=== PATIENT | male | born 1940 | race Caucasian/White ===

== ENCOUNTER 2019-04-11 12:59 | Outpatient (RCR) | payer MEDICARE, BC ==
[2005-02-28 09:55] VITALS: BP 178/78
[~2019-04-11] VITALS: Ht 167.6 cm; Wt 53.4 kg
[~2019-04-11 12:59] MED LIST: ASPIRIN E.C. 8181 MG PO; BENICAR HCT 251 TAB PO; CELEBREX 200MG200 MG PO; HYZAAR 25 MG-101 TAB PO; LOPRESSOR 225 MG/TAB PO; LOPRESSOR PO; PLAVIX 75MG TAB75 MG PO; ROXICODONE 55 MG/TAB PO; SIMVASTATIN40 MG PO; VITAMIN D1000 IU PO; ZOCOR 40MG40 MG PO
[2019-04-11 14:11] LABS: HEMATOCRIT 38.7 % (42.0-52.0); HEMOGLOBIN 13.3 g/dl (13.5-18.0); MEAN CELL VOLUME 98 fl (80.0-100.0); MEAN CORPUSCULAR HEMOGLOBIN 34 pg (27.0-31.0); MEAN CORPUSCULAR HGB CONC 34 g/dl (33.0-37.0); MEAN PLATELET VOLUME 9.5 fl (7.4-10.4); PLATELET COUNT 191 K/mm3 (130-400); RED BLOOD COUNT 3.97 M/mm3 (4.20-5.60); REDCELL DISTRIBUTION WIDTH-CV 12.4 % (11.5-14.5)
[2019-04-11 14:20] LABS: ALBUMIN 3.1 gm/dL (3.5-5.0); BILIRUBIN,TOTAL 0.3 mg/dL (0.0-1.0); CALCIUM 8.7 mg/dL (8.4-10.2); CREATININE, serum 1.53 (0.66-1.25); POTASSIUM 3.6 mmol/L (3.4-5.0); TOTAL PROTEIN 6.3 gm/dL (6.4-8.2)
[2019-04-11 14:50] LABS: THYROID STIMULATING HORMONE 7.74 uIU/mL (0.465-4.680)
[2019-04-11 14:57] LABS: BAND 2 % (0-10); EOSINOPHIL 7 % (0-4); NEUTROPHILS 69 % (42.0-75.2); PLATELET ESTIMATE NORMAL (NORMAL)
[2019-04-11 14:58] LABS: LYMPHOCYTE 16 % (20.0-51.0)
[2019-04-11 15:11] VITALS: BP 128/62; PULSE 52; TEMP 98.4
== END 2019-04-11 14:55 | disposition home or self-care (01) ==
LOC: EUO 12:59
PROVIDERS: Internal Medicine
DX: R42 Dizziness and giddiness (principal); R06.02 Shortness of breath
CPT/HCPCS: J7030

== ENCOUNTER 2019-04-19 18:52 | Emergency (ER) | payer MEDICARE, BC ==
[2005-02-28 09:55] VITALS: BP 178/78
[~2019-04-19] VITALS: Ht 165.1 cm; Wt 52.7 kg
[2019-04-19 18:59] VITALS: TEMP 97.4
[2019-04-19 20:17] LABS: HEMATOCRIT 37.9 % (42.0-52.0); HEMOGLOBIN 12.9 g/dl (13.5-18.0); MEAN CELL VOLUME 99 fl (80.0-100.0); MEAN CORPUSCULAR HEMOGLOBIN 34 pg (27.0-31.0); MEAN CORPUSCULAR HGB CONC 34 g/dl (33.0-37.0); MEAN PLATELET VOLUME 9.3 fl (7.4-10.4); PLATELET COUNT 191 K/mm3 (130-400); RED BLOOD COUNT 3.83 M/mm3 (4.20-5.60)
[2019-04-19 20:19] LABS: ALBUMIN 3.6 gm/dL (3.5-5.0); BILIRUBIN,TOTAL 0.4 mg/dL (0.0-1.0); CALCIUM 8.7 mg/dL (8.4-10.2); CREATININE, serum 1.63 (0.66-1.25); POTASSIUM 3.5 mmol/L (3.4-5.0); TOTAL PROTEIN 7.1 gm/dL (6.4-8.2)
[2019-04-19 20:34] LABS: TROPONIN-I 0.038 ng/mL (0.000-0.035)
[2019-04-19 21:11] LABS: BAND 5 % (0-10); EOSINOPHIL 5 % (0-4); NEUTROPHILS 82 % (42.0-75.2)
[2019-04-19 21:12] LABS: LYMPHOCYTE 6 % (20.0-51.0); PLATELET ESTIMATE NORMAL (NORMAL)
[2019-04-19 23:53] LABS: COLLECTION METHOD CLEAN CATCH
[2019-04-19 23:59] LABS: PH 6 (5-8); SQUAMOUS EPITHELIAL None Seen /hpf; URINE APPEARANCE Clear; URINE BACTERIA None Seen /hpf; URINE BILIRUBIN Negative (NEGATIVE); URINE BLOOD 1+ (NEGATIVE); URINE COLOR Straw; URINE GLUCOSE 1+ (NEGATIVE); URINE KETONE Negative (NEGATIVE); URINE LEUKOCYTE ESTERASE Negative (NEGATIVE); URINE NITRATE Negative (NEGATIVE); URINE PROTEIN(semi-quant) Negative (NEGATIVE); URINE RBC 0-2 /hpf; URINE UROBILINOGEN Negative (NEGATIVE)
[2019-04-20 02:10] VITALS: BP 156/79; PULSE 97
== END 2019-04-20 02:10 | disposition short-term general hospital (02) ==
LOC: COL.ER 18:52
PROVIDERS: Emergency Medicine
DX: J44.1 Chronic obstructive pulmonary disease with (acute) exacerbation (principal); E87.2 Acidosis; R79.89 Other specified abnormal findings of blood chemistry; Z86.73 Personal history of transient ischemic attack (TIA), and cerebral infarction without residual deficits; Z85.118 Personal history of other malignant neoplasm of bronchus and lung
CPT/HCPCS: J2930; J7030; Q9967

== ENCOUNTER 2019-06-12 10:43 | Day surgery (SDC) | payer MEDICARE, BC ==
[2005-02-28 09:55] VITALS: BP 178/78
[2019-06-12] VITALS (14 sets, daily range): BP systolic 121–199; BP diastolic 68–96; PULSE 65–87; TEMP 97.4–98
[~2019-06-12] VITALS: Ht 165.1 cm; Wt 52.2 kg
[2019-06-12] MEDS ORDERED: ANORO IH (10:59)
[2019-06-12] MEDS ORDERED: PROVENTIL0.09 MG/A1 IH (11:00)
[2019-06-12] MEDS ORDERED: PULMICORT180 MCG/Ac IH (11:00)
[2019-06-12] MEDS ORDERED: CELEBREX 200MG200 MG PO (11:01)
[2019-06-12] MEDS ORDERED: PLAVIX 75MG TAB75 MG PO (11:01)
[2019-06-12] MEDS ORDERED: NICODERM C14 MG/PATC TD (11:02)
[2019-06-12 11:49] LABS: INR 0.9 (0.8-3.0); PROTHROMBIN TIME 10.9 SECONDS (9.7-12.8)
[2019-06-12 11:55] LABS: CALCIUM 9.3 mg/dL (8.4-10.2); CREATININE, serum 1.46 (0.66-1.25); POTASSIUM 4.4 mmol/L (3.4-5.0)
[2019-06-12 12:11] LABS: HEMATOCRIT 41.5 % (42.0-52.0); HEMOGLOBIN 13.9 g/dl (13.5-18.0); MEAN CELL VOLUME 101 fl (80.0-100.0); MEAN CORPUSCULAR HEMOGLOBIN 34 pg (27.0-31.0); MEAN CORPUSCULAR HGB CONC 34 g/dl (33.0-37.0); MEAN PLATELET VOLUME 9.6 fl (7.4-10.4); PLATELET COUNT 215 K/mm3 (130-400); RED BLOOD COUNT 4.12 M/mm3 (4.20-5.60); REDCELL DISTRIBUTION WIDTH-CV 13.2 % (11.5-14.5)
[2019-06-12] MEDS ORDERED: CARTIA XT120 MG PO (14:42)
== END 2019-06-12 22:18 | disposition home or self-care (01) ==
LOC: COL.CAR 10:43 → MEDICAL 17:42 → COL.CAR 22:18
PROVIDERS: Internal Medicine Cardiovascular Disease
DX: I25.10 Atherosclerotic heart disease of native coronary artery without angina pectoris (principal); R94.39 Abnormal result of other cardiovascular function study; E03.9 Hypothyroidism, unspecified; I95.1 Orthostatic hypotension; J44.9 Chronic obstructive pulmonary disease, unspecified; N18.3 Chronic kidney disease, stage 3 (moderate); I12.9 Hypertensive chronic kidney disease with stage 1 through stage 4 chronic kidney disease, or unspecified chronic kidney disease; N52.9 Male erectile dysfunction, unspecified; E78.5 Hyperlipidemia, unspecified; M19.90 Unspecified osteoarthritis, unspecified site; M85.80 Other specified disorders of bone density and structure, unspecified site; F17.210 Nicotine dependence, cigarettes, uncomplicated; Z86.73 Personal history of transient ischemic attack (TIA), and cerebral infarction without residual deficits; Z85.118 Personal history of other malignant neoplasm of bronchus and lung; Z79.82 Long term (current) use of aspirin; Z79.02 Long term (current) use of antithrombotics/antiplatelets; Z82.49 Family history of ischemic heart disease and other diseases of the circulatory system; Z80.1 Family history of malignant neoplasm of trachea, bronchus and lung
CPT/HCPCS: OP; C1769; C1894; J1644; J2250; J3010; Q9967

== ENCOUNTER 2019-12-18 11:32 | Inpatient (IN) | payer MEDICARE, BC ==
[~2019-12-18] VITALS: Ht 160 cm; Wt 50.3 kg
[~2019-12-18 11:32] MED LIST changes: +ANORO IH; +CARTIA XT120 MG PO; +NICODERM C14 MG/PATC TD; +PROVENTIL0.09 MG/A1 IH; +PULMICORT180 MCG/Ac IH
[2019-12-18 13:21] LABS: BASO % 0.5 % (0.0-2.0); EOS # 0.1 (0.0-0.7); EOS % 1.3 % (0-4.0); GRAN # 5.5 (1.4-6.5); GRAN % 71.7 % (42.2-75.2); HEMATOCRIT 40.6 % (42.0-52.0); HEMOGLOBIN 13.4 g/dl (13.5-18.0); LYMPH # 1.3 (1.2-3.4); LYMPH % 17.2 % (20.0-51.0); MEAN CELL VOLUME 98 fl (80.0-100.0); MEAN CORPUSCULAR HEMOGLOBIN 32 pg (27.0-31.0); MEAN CORPUSCULAR HGB CONC 33 g/dl (33.0-37.0); MEAN PLATELET VOLUME 9.8 fl (7.4-10.4); MONO # 0.7 (0.1-0.6); MONO % 8.9 % (1.7-9.3); PLATELET COUNT 237 K/mm3 (130-400); RED BLOOD COUNT 4.13 M/mm3 (4.20-5.60); REDCELL DISTRIBUTION WIDTH-CV 12.8 % (11.5-14.5)
[2019-12-18 13:23] LABS: PROTHROMBIN TIME 11.6 SECONDS (9.7-12.8)
[2019-12-18 13:30] LABS: ALBUMIN 3.8 gm/dL (3.5-5.0); BILIRUBIN,TOTAL 1.2 mg/dL (0.0-1.0); CALCIUM 9.4 mg/dL (8.4-10.2); CREATININE, serum 1.2 (0.66-1.25); POTASSIUM 3.6 mmol/L (3.4-5.0); TOTAL PROTEIN 7.8 gm/dL (6.4-8.2)
[2019-12-18 13:42] LABS: TROPONIN-I 0.052 ng/mL (0.000-0.035)
[2019-12-18] MEDS ORDERED: SYNTHROID 0.0.025 MG PO (14:31)
[2019-12-18] MEDS ORDERED: COZAAR100 MG PO (14:32)
--- NOTE | 2019-12-18 17:40 | NUR ---
report received from ED nurse, informed her room has not been cleaned and will notify her when ready, verbalizes understanding
--- NOTE | 2019-12-18 18:40 | NUR ---
arrived on unit per and assisted into bed, supper here and provided to the patient
--- NOTE | 2019-12-18 18:55 | NUR ---
bedside shift report given to ANGELO Perry
[2019-12-18 19:38] VITALS: BP 132/60; PULSE 82; TEMP 98
[2019-12-18 19:40] VITALS: BP 132/60; PULSE 82; TEMP 98
--- NOTE | 2019-12-18 19:53 | NUR ---
MADHAV IN PT ROOM TO ASSESS PT D/T FAMILY CONCERNS OF PT HAVING INCREASED CONFUSION AND "NOT HERSELF". NEW ORDERS RECEIVED. BED EXIT ALARM ACTIVATED, CALL LIGHT WITHIN REACH.
--- NOTE | 2019-12-18 20:37 | NUR ---
PT IS ADMITTED TO ROOM 308 ON MEDICAL FOR TREATMENT OF CVA THAT PT REPORTS OCCURRED YESTERDAY 12/17 AND WAS THEN BROUGHT IN TO ED TODAY FOR CONTINUED WEAKNESS TO R SIDE. PT SPEECH IS SLIGHTLY SLURRED AT THIS TIME. PT DENIES ANY DIFFICULTY SWALLOWING OR OTHER ISSUES. PT DOES APPEAR TO HAVE SOME WEAKNESS NOTED TO LUE WITH ESCALATOR ATTENDANT ALTHOUGH IS NOTED TO WEAK ON R SIDE WITH GAIT AND PRESSES. PT DENIES SOB, CP, OR OTHER PAIN. PT IS ALERT, OX4, AND APPROPRIATE. REVIEWED MEDICATIONS AND MED HX WTIH PT. PT CALL LIGHT IS WITHIN REACH AND BED EXIT ALARM IS ACTIVATED.
--- NOTE | 2019-12-18 21:04 | NUR ---
notified MADHAV OF PT TROPONIN ELEVATION OF 0.069; ORDERED TO CALL BOLA TO REPORT TO HIM.
--- NOTE | 2019-12-18 22:15 | NUR ---
DR PLAZA NOTIFIED BY OHONE OF PT ELEVATED TROPONIN OF 0.069, ORDERS RECEIVED TO REPEAT TROPONIN AT 0800 IN AM AND DO NOT HAVE THE 0200 TROPONIN DRAWN.
[2019-12-18 23:06] VITALS: BP 138/54; PULSE 79; TEMP 97.9
--- NOTE | 2019-12-19 01:00 | NUR ---
DR CAM NOTIFIED IN PERSON OF NUEROLOGY CONSULT, STATES HE WILL SEE PT AFTER HAVING SOME SLEEP.
[2019-12-19 03:21] VITALS: BP 142/78; PULSE 69; TEMP 97.8
--- NOTE | 2019-12-19 04:27 | NUR ---
PT HAS SLEPT GOOD THROUGH THE NIGHT, AWAKENS EASILY FOR NEURO CHECKS Q4 HOURS. R SIDED WEAKNESS HAS IMPROVED AND WAS NOT NOTED AT THIS TIME. PT CONTINUES TO HAVE SOME SLIGHT SLURRING OF SPEECH. PT DENIES ANY PAIN OR OTHER ISSUES. CALL LIGHT WITHIN REACH.
--- NOTE | 2019-12-19 07:01 | NUR ---
REPORT GIVEN TO ANGELO OLMEDO.
[2019-12-19 07:42] VITALS: BP 179/79; PULSE 77; TEMP 97.9
[2019-12-19 08:48] LABS: BASO # 0.1 (0.0-0.2); BASO % 0.8 % (0.0-2.0); EOS # 0.4 (0.0-0.7); EOS % 4.8 % (0-4.0); GRAN # 5.2 (1.4-6.5); GRAN % 68.2 % (42.2-75.2); HEMATOCRIT 40.7 % (42.0-52.0); HEMOGLOBIN 13.5 g/dl (13.5-18.0); LYMPH # 1.2 (1.2-3.4); LYMPH % 16.1 % (20.0-51.0); MEAN CELL VOLUME 99 fl (80.0-100.0); MEAN CORPUSCULAR HEMOGLOBIN 33 pg (27.0-31.0); MEAN CORPUSCULAR HGB CONC 33 g/dl (33.0-37.0); MEAN PLATELET VOLUME 9.8 fl (7.4-10.4); MONO # 0.7 (0.1-0.6); MONO % 9.7 % (1.7-9.3); PLATELET COUNT 243 K/mm3 (130-400); REDCELL DISTRIBUTION WIDTH-CV 12.7 % (11.5-14.5)
[2019-12-19 08:58] LABS: CALCIUM 9.2 mg/dL (8.4-10.2); CREATININE, serum 1.29 (0.66-1.25); POTASSIUM 3.9 mmol/L (3.4-5.0)
[2019-12-19 09:11] LABS: TROPONIN-I 0.072 ng/mL (0.000-0.035)
--- NOTE | 2019-12-19 09:47 | NUR ---
SW met with the patient to discuss discharge plan. The patient lives outside of [place] by [facility] with his , Janelle (ph#[phone]). He reports independence with ADLs prior to hospitalization and has a walker. The patient's PCP is Dr. Deedee Bowens and he receives his medications at [facility]. He reports no difficulties obtaining his meds. The patient does not have advanced directives in EMR and he states that he is unsure if he does have them completed. He states that SW would need to ask his . The patient states that he feels good about returning home. The patient had a CVA. PT/OT have been ordered. SW to continue to follow.
--- NOTE | 2019-12-19 10:52 | NUR ---
Pt sitting in bed, A&O, tolerating breakfast and medications well. Pt had elevated BP and troponin this morning, hospitalist aware. Cozaar restarted. Another troponin level to be drawn in 6 hr. Pt denies pain, dizziness, SOB, N/V/D, chest pain. Neuro checks WNL, strength is WNL, some slurred speech noted. Pt has SHREYA IV, LR started at 75ml/hr w/o complications. Pt worked with therapy, using walker, a little unsteady on feet. Pt placed on fall precautions, educated on use of call light, verbalized understanding. No other concerns expressed by patient at this time.
--- NOTE | 2019-12-19 11:28 | NUR ---
First visit from the claims configuration analyst. No needs right now.
[2019-12-19 11:48] VITALS: BP 156/72; PULSE 68; TEMP 98.6
--- NOTE | 2019-12-19 15:16 | NUR ---
SOHAIL met with the patient to review PT/OT's recommendation of inpatient rehab. The patient reports that he would be interested in inpatient rehab/post-acute rehab upon discharge. SOHAIL presented and explained the Patient Choice Form to the patient and provided him with Medicare.gov's list of SNF's in the [facility]. The patient chose 1) [facility] 2) [facility]. Patient Choice Form signed by the patient and he was provided a copy. SOHAIL consulted IPR Director, Génesis. SOHAIL contacted and faxed a referral to Tuan at [facility]. SOHAIL awaiting their screens.
[2019-12-19 16:42] VITALS: BP 162/72; PULSE 72; TEMP 97.7
--- NOTE | 2019-12-19 17:04 | NUR ---
Hospitalist notified of Troponin result, trending down.
[2019-12-19 19:17] VITALS: BP 148/64; PULSE 82; TEMP 98
--- NOTE | 2019-12-19 20:58 | NUR ---
PT SLEEPING WHEN ENTERING ROOM. PT PLEASANT WHEN AWOKEN AND COMPLIANT. PT'S NEURO CHECKS SEEM CONSISTENT WITH PAST NEURO SCORES, AGRICULTURE INTERN EQUAL, AOX4, LIMBS EQUAL STRENGTH, SOME SLURRING OF SPEECH. TABLE AT BEDSIDE CALL LIGHT AND DRINK AT BEDSIDE. DENIES PAIN/DISCOMFORT AND HAS NO OTHER NEEDS AT THIS TIME.
[2019-12-19 23:53] VITALS: BP 157/71; PULSE 70; TEMP 97.7
--- NOTE | 2019-12-20 00:07 | NUR ---
PT SLEEPING UPON ENTRY TO ROOM. NEW BAG OF FLUIDS HUNG, EXPLAINED PURPOSE OF FLUIDS WHEN HE ASKED WHAT THEY WERE FOR, TOOK VITAL SIGNS, NO NEW NEURO STATUS CHANGES, CONSISTENT WITH EARLIER NEURO CHECKS. PT DENIES PAIN OR DISCOMFORT, NO OTHER NEEDS AT THIS TIME.
--- NOTE | 2019-12-20 00:55 | NUR ---
PT SLEEPING UPON ENTRY. VITALS PERFORMED. TELE CALLED EARLIER IN NIGHT TO SAY HR DROPPED TO 49 BUT CAME RIGHT BACK UP INTO 60'S. PT DENIES PAIN OR DISCOMFORT STATES SHE IS SLEEPING BETTER THAN SHE HAS IN AWHILE. PT HELPED TO BATHROOM AND THEN BACK TO BED. PT DRANK SOME WATER AND PUT OXYGEN BACK ON. PT DENIES ANY OTHER NEEDS AT THIS TIME. PT IV INFILTRATED, NEW IV ATTEMPTED. SUCCESSFULLY STARTED SECOND TRY ON RIGHT HAND 22G
[2019-12-20 04:03] VITALS: BP 153/76; PULSE 76; TEMP 97.7
--- NOTE | 2019-12-20 04:56 | NUR ---
pt sleeping, denying pain or discomfort. call light and table and drink at bedside. bed in lowest position. iv fluids running in right hand. pt denies any other needs at this time. uneventful shift.
[2019-12-20 06:40] LABS: BASO # 0.1 (0.0-0.2); BASO % 0.9 % (0.0-2.0); EOS # 0.4 (0.0-0.7); GRAN # 3.4 (1.4-6.5); GRAN % 58.6 % (42.2-75.2); LYMPH # 1.1 (1.2-3.4); LYMPH % 19.9 % (20.0-51.0); MEAN CELL VOLUME 100 fl (80.0-100.0); MEAN CORPUSCULAR HGB CONC 33 g/dl (33.0-37.0); MEAN PLATELET VOLUME 10.2 fl (7.4-10.4); MONO # 0.8 (0.1-0.6); MONO % 13.3 % (1.7-9.3); PLATELET COUNT 195 K/mm3 (130-400); RED BLOOD COUNT 3.52 M/mm3 (4.20-5.60); REDCELL DISTRIBUTION WIDTH-CV 12.9 % (11.5-14.5)
[2019-12-20 06:53] LABS: HEMOGLOBIN 11.5 g/dl (13.5-18.0); MEAN CORPUSCULAR HEMOGLOBIN 33 pg (27.0-31.0)
[2019-12-20 06:54] LABS: CALCIUM 8.4 mg/dL (8.4-10.2); CREATININE, serum 1.19 (0.66-1.25); HEMATOCRIT 35.2 % (42.0-52.0); POTASSIUM 3.9 mmol/L (3.4-5.0)
[2019-12-20 06:58] VITALS: BP 136/62; PULSE 65; TEMP 97.9
--- NOTE | 2019-12-20 09:19 | NUR ---
Génesis, IPR Director, reports that they are able to accept the patient. SW updated the patient and notified the clinical team. SW to continue to follow.
[2019-12-20] MEDS ORDERED: PLAVIX 75MG TAB75 MG PO (09:50)
[2019-12-20] MEDS ORDERED: LIPITOR 80MG80 MG PO (09:50)
--- NOTE | 2019-12-20 09:54 | NUR ---
The patient is to discharge today, 12/20, to [facility]. SW updated the patient's , Janelle, via phone. No additional needs at this time.
[2019-12-20 12:00] VITALS: BP 141/54; PULSE 70; TEMP 97.9
--- NOTE | 2019-12-20 13:30 | NUR ---
REPORT CALLED TO IPR. IV REMOVED WITHOUT ISSUES. PT ATE LUNCH. NO ISSUES OR CONSERNS VOICED THIS SHIFT. NO NOTED RESIDUAL FROM CVA. HAS BEEN RELAXING IN RECLINER THIS AM. PT STARTED ON PLAVIX THIS AM. HAS BEEN PLEASENT AND COOPERATIVE WITH CARES.
--- NOTE | 2019-12-20 13:45 | NUR ---
IPR REHAB STAFF HERE TO TAKE PT OVER TO IPR. WE WILL TAKE PT BELONGINGS TO IPR ROOM.
== END 2019-12-20 13:04 | disposition home or self-care (01) | DRG 66 ==
LOC: COL.ER 11:32 → MEDICAL 13:59
PROVIDERS: Emergency Medicine; ADMIT Student in an Organized Health Care Education/Training Program
DX: I63.9 Cerebral infarction, unspecified (principal); J44.9 Chronic obstructive pulmonary disease, unspecified; I25.10 Atherosclerotic heart disease of native coronary artery without angina pectoris; I12.9 Hypertensive chronic kidney disease with stage 1 through stage 4 chronic kidney disease, or unspecified chronic kidney disease; M19.90 Unspecified osteoarthritis, unspecified site; N18.3 Chronic kidney disease, stage 3 (moderate); R27.0 Ataxia, unspecified; R47.81 Slurred speech; R47.1 Dysarthria and anarthria; R91.8 Other nonspecific abnormal finding of lung field; R78.89 Finding of other specified substances, not normally found in blood; G62.9 Polyneuropathy, unspecified; E03.9 Hypothyroidism, unspecified; F17.210 Nicotine dependence, cigarettes, uncomplicated; H91.90 Unspecified hearing loss, unspecified ear; I25.2 Old myocardial infarction; Z79.82 Long term (current) use of aspirin; Z86.73 Personal history of transient ischemic attack (TIA), and cerebral infarction without residual deficits
CPT/HCPCS: 99223-AI; 99233-AI; 99239; J7120; Q9967

== ENCOUNTER 2019-12-20 10:24 | Inpatient (IN) | payer MEDICARE, BC ==
[~2019-12-20] VITALS: Ht 165.1 cm; Wt 50.1 kg
[~2019-12-20 10:24] MED LIST changes: +COZAAR100 MG PO; +LIPITOR 80MG80 MG PO; +SYNTHROID 0.0.025 MG PO
--- NOTE | 2019-12-20 13:29 | NUR ---
Report from Janelle on medical. Therapy notified of pt's admission.
[2019-12-20 16:58] VITALS: BP 172/84; PULSE 72; TEMP 98
--- NOTE | 2019-12-20 19:30 | NUR ---
PATIENT RESTING IN BED, HAS VISITOR IN ROOM, DURING CHANGE OF SHIFT REPORT FROM DAY SHIFT NURSE. BED ALARM ON.
--- NOTE | 2019-12-20 20:15 | NUR ---
Bedside report to ANGELO Briggs. Pt has male friend visiting. Speech moderate to severly slurred. Yellow gown on and yellow fall wrist band in place. Bed alarm on, stressed importance of calling and waiting for staff to help, verbalized understanding. Pt spilled coffee on bed and floor at supper, was assisted with cleaning up. Denies pain. Needs 5pg admission and suicide risk assessment still, Brigitte informed.
--- NOTE | 2019-12-21 02:46 | NUR ---
SLEEPS WITHOUT WAKING WHEN DOOR TO ROOM IS OPENED. BREATHING NONLABORED AND EVEN. BED ALARM ON.
[2019-12-21 05:54] VITALS: BP 145/71; PULSE 69; TEMP 97.4
--- NOTE | 2019-12-21 08:02 | NUR ---
Patient reported sleeping well last night, call light in reach and bed alarm set. Patient denies pain this morning, tolerated diet well. Will continue to monitor.
--- NOTE | 2019-12-21 10:21 | NUR ---
Patient was not in the room. Probably at physical therapy.
--- NOTE | 2019-12-21 15:15 | NUR ---
Patient resting in bed at this time, call light in reach and watching TV. Denies any pain.
--- NOTE | 2019-12-21 15:21 | NUR ---
Patient was found walking in his room without his walker to the left side of his bed. He was holding on to the side railing of the bed when he was walking, but he had dropped his urinal and was going to try to pick the urinal up from under the bed. This nurse observed the above and promptly escorted patient back to his bed and retrieved the urinal from under his bed. Patient was educated on the need to use his call light when wanting to get up and that he would need to wait for staff to assist him before ambulating. He voiced understanding. Will continue to monitor.
[2019-12-21 16:25] VITALS: BP 187/85; PULSE 77; TEMP 98.8
[2019-12-21 17:30] VITALS: BP 158/81
--- NOTE | 2019-12-21 18:27 | NUR ---
Patient had an elevated blood pressure and Dr. Almeida was called. See new orders for Alpresoline 10 mg Q 4HR PRN for SBP >170. Patient was given one PRN Alpresoline and follow up blood pressure was taken and it is now 158/81. Will continue to monitor.
--- NOTE | 2019-12-21 19:09 | NUR ---
PATIENT RESTING IN BED WHILE VISITING WITH FRIEND DURING CHANGE OF SHIFT REPORT FROM DAY SHIFT NURSE. BED ALARM ON. DENIES ANY NEEDS OR COMPLAINTS CURRENTLY.
--- NOTE | 2019-12-21 23:09 | NUR ---
PATIENT SLEEPING IN BED, BREATHING NONLABORED AND EVEN, DOES NOT AWAKEN WHEN DOOR TO ROOM OPENS, BED ALARM ON, MEDIUM SENSITIVITY.
--- NOTE | 2019-12-22 01:45 | NUR ---
SLEEPING WITH NO WAKING UP WHEN DOOR TO ROOM OPENS, BED ALARM ON. BREATHING NONLABORED AND EVEN.
[2019-12-22 03:51] VITALS: BP 145/68; PULSE 70; TEMP 98.3
--- NOTE | 2019-12-22 07:03 | NUR ---
RESTING IN BED WITH BED ALARM ON DURING CHANGE OF SHIFT REPORT GIVEN TO DAY SHIFT NURSE.
--- NOTE | 2019-12-22 07:38 | NUR ---
Patient resting in bed at this time, call light in reach and bed alarm set. Patient is eating his breakfast.
--- NOTE | 2019-12-22 13:47 | NUR ---
Patient resting in bed, call light in reach and family by his side. Patient tolerated meals well this shift. He was independent on his grooming, but refused to change his clothes wanting to just go back to bed. Denied pain or questions.
[2019-12-22 16:14] VITALS: BP 160/86; PULSE 78; TEMP 99.1
--- NOTE | 2019-12-22 19:30 | NUR ---
PATIENT RESTING IN BED DURING CHANGE OF SHIFT REPORT FROM DAY SHIFT NURSE. BED ALARM ON.
--- NOTE | 2019-12-22 19:57 | NUR ---
Patient was moved from room 335 to room 337 due to him needing to be observed closer. He has not been using his call light appropriatly at times and other times forgets to use it.
--- NOTE | 2019-12-22 21:00 | NUR ---
PATIENT REFUSED OFFER OF DULCOLAX SUPPER STATING THAT HE HAS HAD BM "YESTERDAY AND TODAY".
[2019-12-22 22:07] VITALS: BP 177/69; PULSE 73
[2019-12-23 03:00] VITALS: BP 156/76; PULSE 70; TEMP 98.7
--- NOTE | 2019-12-23 04:06 | NUR ---
PATIENT SLEEPING, DOES NOT AWAKEN WHEN ROOM ENTERED BY NURSING STAFF. BREATHING NONLABORED AND EVEN. BED ALARM ON.
--- NOTE | 2019-12-23 07:52 | NUR ---
PATIENT RESTING IN BED DURING CHANGE OF SHIFT REPORT GIVEN TO DAY SHIFT NURSE. BED ALARM ON.
[2019-12-23 08:00] VITALS: BP 138/60
[2019-12-23 11:35] VITALS: BP 157/55; PULSE 64
--- NOTE | 2019-12-23 16:31 | NUR ---
SW met with the patient to complete initial intake, as the patient is new to [facility]. The patient lives outside of [place] by [facility] with his , Janelle (ph#[phone]). He reports independence with ADLs and states that his have a walker. The patient's PCP is Dr. Deedee Bowens and he receives his medications at [facility]. He reports no difficulties obtaining his meds. The patient does not have advanced directives in EMR and he states that he is unsure if he does have them completed. He states that his would know. SW attempted to contact his . The call would hang up. SW to follow back up with the patient and his when she is at the hospital about the DPOA-HC. SW to continue to follow.
[2019-12-23 16:37] VITALS: BP 147/63; PULSE 70; TEMP 97.5
--- NOTE | 2019-12-23 19:39 | NUR ---
Bedside report from ANGELO Briggs. No acute changes today. Pt amb with walker. ACCESS RN reports incont soft stool today, had given bowel meds earlier. Couple friends visited today. Pt A&O, pleasantly cooperative, took pills whole with water. Bedside report to ANGELO Stephens. Bed alarm on, call lt in reach
--- NOTE | 2019-12-23 20:40 | NUR ---
Patient awakened for HS med and vitals. BP rechecked by nurse. Patient denies pain or needs. Repositions self in bed. SCD's applied.
[2019-12-23 20:47] VITALS: BP 154/112; PULSE 70; TEMP 97.5
[2019-12-23 20:56] VITALS: BP 147/67; PULSE 65
--- NOTE | 2019-12-23 21:59 | NUR ---
Patient rests with eyes closed. Respirations with ease.
--- NOTE | 2019-12-24 02:24 | NUR ---
Patient rests with eyes closed. Respirations with ease.
[2019-12-24 05:24] VITALS: BP 163/77; PULSE 71; TEMP 97.6
--- NOTE | 2019-12-24 05:44 | NUR ---
Patient awakened for vitals and med. Denies needs urinal emptied.
--- NOTE | 2019-12-24 10:15 | NUR ---
Patient's son-in-law stopped by this morning and dropped off some cup cakes and fishing magazines for him to enjoy. Patient was able to see this visitor for a few minutes prior to leaving for group therapy down stairs.
--- NOTE | 2019-12-24 11:03 | NUR ---
Patient working with therapy at this time. He tolerated diet well this morning. He was in a pleasent mood and had no episodes of impulsiveness. Denied pain. Will continue to monitor.
[2019-12-24 12:36] VITALS: BP 157/60; PULSE 75; TEMP 97.7
[2019-12-24 19:39] VITALS: BP 158/70; PULSE 74; TEMP 97.8
--- NOTE | 2019-12-24 20:31 | NUR ---
Patient resting in bed at this time, call light in reach and bed alarm set. He is independent with eating. Denied any questions.
--- NOTE | 2019-12-24 21:15 | NUR ---
Patient rests in bed. Awakened for Hs meds. Denies pain or needs. Speech slurred but stating "take a cupcake". Oriented x 4 at this time. Declines snack. Rests on right side. SCD's applied. Urinal emptied. Bedalarm on.
--- NOTE | 2019-12-25 02:30 | NUR ---
patient has been resting with eyes closed. Respirations with ease.
[2019-12-25 04:00] VITALS: BP 152/73; PULSE 66; TEMP 98.7
[2019-12-25 12:46] VITALS: BP 164/69; BP 171/69; PULSE 60
[2019-12-25 16:43] VITALS: BP 151/73; PULSE 73; TEMP 98.7
--- NOTE | 2019-12-25 19:30 | NUR ---
PATIENT RESTING IN BED WITH VISITORS IN ROOM, DURING CHANGE OF SHIFT REPORT FROM DAY SHIFT NURSE. BED ALARM ON.
--- NOTE | 2019-12-25 19:44 | NUR ---
Bedside report from ANGELO Stephens. Pt cont to have slurred speech, pleasant, oriented, denies pain, poor appetite, denies nausea. Plan to discharge next Monday. Friends visited this rupert. Discussed pt's specialists for f/u appts. Bedside report to ANGELO Briggs. Pt in bed with alarm on, call lt in reach, yellow gripper socks in place.
[2019-12-25 20:00] VITALS: BP 163/67
--- NOTE | 2019-12-25 22:44 | NUR ---
PATIENT RESTING WITH EYES CLOSED, DOES NOT AWAKEN WHEN DOOR TO ROOM OPENS. BREATHING NONLABORED AND EVEN. BED ALARM ON.
--- NOTE | 2019-12-26 02:16 | NUR ---
PATIENT RESTING WITH EYES CLOSED, BREATHING NONLABORED AND EVEN, DOES NOT AWAKEN WHEN DOOR TO ROOM OPENS. BED ALARM ON.
--- NOTE | 2019-12-26 03:44 | NUR ---
PATIENT CONTINUES SLEEPING, DOES NOT AWAKEN WHEN DOOR TO ROOM OPENS, BREATHING EVEN/NONLABORED. BED ALARM ON.
--- NOTE | 2019-12-26 05:00 | NUR ---
PATIENT ATTEMPTED TO HAVE BM, REPORTED NO BM PASSED, OFFERED DULCOLAX SUPP, PATIENT REFUSED MED, STATES HE DOES NOT NEED ANY MED FOR BM AT THIS TIME. BED ALARM ON.
[2019-12-26 05:33] VITALS: BP 168/70; PULSE 73; TEMP 97.7
--- NOTE | 2019-12-26 07:00 | NUR ---
PATIENT UP IN CHAIR DURING CHANGE OF SHIFT REPORT GIVEN TO DAY SHIFT NURSE. CHAIR ALARM ON.
--- NOTE | 2019-12-26 11:15 | NUR ---
Bedside report from ANGELO Briggs. Pt assisted OOB to chair with alarm on for breakfast, call lt and urinal and room phone in reach. Pt denies pain, cont to have slurred speech, alert, oriented, pleasant. Takes pills a few at a time with thin liquids. Had SCDs to BLE in bed. Some incont urine on bed.
[2019-12-26 11:48] VITALS: BP 149/73; PULSE 60
--- NOTE | 2019-12-26 15:12 | NUR ---
SOHAIL met with the patient to present and review the IPR Team Conference Note. SOHAIL discussed the team's recommendation of a tentative discharge for next Monday, 12/31, with outpatient PT/OT/ST and a FWW. The patient was in agreeance to the plan. SOHAIL discussed the different therapy centers and how the [facility] on [facility] has all three PT/OT/ST. The patient was agreeable to receive outpatient therapy there. SOHAIL contacted [facility] on and secured the patient and outpatient PT appointment on 01/01 at 1315, OT on 01/02 at 1500, and ST on 01/07 at 0815. SOHAIL will need to fax the patient's discharge orders to [phone]. SOHAIL also presented and explained the Patient Choice Form for DME. The patient chose [facility]. Patient Choice Form signed by the patient and he was provided a copy. SOHAIL contacted the patient's , Janelle, and updated her of the plan and a family meeting was scheduled for tomorrow at 1300. S[address] notified ST. SOHAIL to contact and fax the patient's FWW order to [facility] and will continue to follow.
--- NOTE | 2019-12-26 16:14 | NUR ---
Faxed CT report including notes about rt lung mass to Dr. Carlton oncology who pt / states has followed this issue. Asked office to advise when to f/u
[2019-12-26 16:50] VITALS: BP 153/70; PULSE 66; TEMP 98.1
--- NOTE | 2019-12-26 19:40 | NUR ---
Bedside report to ANGELO Almodovar. Pt's and daughter visiting, incont of urine onto clothing, changed, SBA, some impulsivity of getting up without calling and setting off alarms. Discussed f/u appts being made.
--- NOTE | 2019-12-26 20:00 | NUR ---
BEDSIDE SHIFT REPORT REC'D FROM HONORIO Jamil RN AT 1900. PT ASSISTED TO BR WITH WALKER W/CGA. VOIDED. NO BM YET. DECLINED FURTHER BOWEL MEDS. SPEECH ALITTLE DIFFICULT TO UNDERSTND AT TIMES.
[2019-12-26 21:00] VITALS: BP 171/85
--- NOTE | 2019-12-27 04:36 | NUR ---
PT MICHAELS HAD NO IMPULSIVENESS TONIGHT. USING CALL LIGHT APPROPRIATELY.
[2019-12-27 05:12] VITALS: BP 169/81; PULSE 71; TEMP 98
--- NOTE | 2019-12-27 11:27 | NUR ---
Bedside report from ANGELO Almodovar. Pt denies pain. Bed alarm on, took pills whole, a few at a time with thin liquids, needed SBA to prompt when pt dropped pill in his lap. Pt has drooling from right side of mouth, amb with walker, pleasant, oriented.
[2019-12-27 12:04] VITALS: BP 139/66; PULSE 70
--- NOTE | 2019-12-27 13:25 | NUR ---
SW attended a family meeting with the patient, his , and daughter. Also present was ST, PT, and OT. ST started by explaining the purpose of the meeting. ST/PT/OT then discussed the patient's progress and discussed the team's recommendation of a discharge next Monday, 12/31, with outpatient PT/OT/ST. The patient and his family were in agreeance to the plan. All patient and families questions were answered by the team. SW to continue to follow.
[2019-12-27 16:41] VITALS: BP 158/71; PULSE 71; TEMP 99
--- NOTE | 2019-12-27 17:43 | NUR ---
Pt in bed, alarm on, call lt and urinal in reach.
--- NOTE | 2019-12-27 18:59 | NUR ---
Report to AGNELO Almodovar.
--- NOTE | 2019-12-27 20:00 | NUR ---
SHIFT REPORT REC'D FROM HONORIO Baig RN AT 1900. PT RESTING IN BED. DENIES COMPLAINTS AT THIS TIME. CALL LIGHT IN REACH BED ALARM SET
[2019-12-27 23:39] VITALS: BP 170/65
[2019-12-28 05:25] VITALS: BP 157/79; PULSE 75; TEMP 98.8
--- NOTE | 2019-12-28 08:10 | NUR ---
PT'S BED WAS WET THIS AM WHEN THIS NURSE WALKED INTO THE ROOM. BED STRIPPED. PT WAS SITTING UP IN THE CHAIR, ALARM ON. PT CHEERFUL AND TALKATIVE. A/O X3.
--- NOTE | 2019-12-28 10:56 | NUR ---
WATCHING TV, DENIES NEEDS OR PAIN
[2019-12-28 11:16] VITALS: BP 142/62; PULSE 78; TEMP 98.7
[2019-12-28 16:05] VITALS: BP 136/54; PULSE 71; TEMP 98.7
--- NOTE | 2019-12-28 18:02 | NUR ---
PT HAS BEEN UP AND AROUND IN HIS ROOM TODAY USING THE WALKER. HIS GAIT IS STEADY AND HE MOVES WELL. HE HAS BEEN TO THE BR SEVERAL TIMES AND IS ABLE TO GET INTO AND OUT OF THE CHAIR OR BED WITH EASE. DENIES PAIN TODAY. CALL LIGHT ALWAYS IN REACH.
[2019-12-28 20:00] VITALS: BP 132/57; PULSE 73; TEMP 98.7
[2019-12-29] VITALS: BP 148/67; PULSE 75; TEMP 97.7
[2019-12-29 05:21] VITALS: BP 143/62; PULSE 68; TEMP 98
--- NOTE | 2019-12-29 06:07 | NUR ---
PT RESTED QUIETLY ALL NIGHT. BLOOD PRESSURES REMAINED LOW ENOUGH TO AVOID USING HYDRALAZINE. PT DENIES PAIN.
[2019-12-29 07:37] VITALS: BP 157/84; PULSE 81; TEMP 97.9
--- NOTE | 2019-12-29 08:27 | NUR ---
Sitting up in chair. Denies pain or needs at this time.
--- NOTE | 2019-12-29 09:18 | NUR ---
Sitting in chair watching television. Patient says that he has already performed oral hygiene for today and does not want shower/sponge bath. Patient denies further needs at this time.
[2019-12-29 11:07] VITALS: BP 129/53; PULSE 71; TEMP 97.7
--- NOTE | 2019-12-29 12:56 | NUR ---
Lying in bed on left side with eyes closed. Respirations even and unlabored. No signs or symptoms of discomfort noted.
--- NOTE | 2019-12-29 14:48 | NUR ---
Sitting up in chair watching TV. Denies needs at this time.
[2019-12-29 15:25] VITALS: BP 135/68; PULSE 78; TEMP 98
--- NOTE | 2019-12-29 17:39 | NUR ---
Lying in bed with eyes open watching TV. Patient denies concerns or needs at this time.
--- NOTE | 2019-12-29 19:05 | NUR ---
Received report from Ingrid. Patient is awake, lying on bed. Denies any pain. Call light within reach. Walker on the bedside.
[2019-12-29 20:07] VITALS: BP 155/65; PULSE 68; TEMP 97.6
[2019-12-30] VITALS (7 sets, daily range): BP systolic 112–184; BP diastolic 50–76; PULSE 70–83; TEMP 97.5–98.3
--- NOTE | 2019-12-30 06:10 | NUR ---
Patient has been asleep most of the night. Denies any pain. Blood pressure has been maintained less than 170. Call light within reach.
--- NOTE | 2019-12-30 08:04 | NUR ---
Pt awake and alert this morning, finishing breakfast, no C/O pain at this time, hand batch operator equil, shift assessments complete, left Pt sitting in bed, bed in lowest position, call light in reach.
--- NOTE | 2019-12-30 11:20 | NUR ---
SOHAIL met with the patient to follow up after the weekend. The patient states that he is doing fine and ready for his discharge on Monday. SOHAIL contacted [facility] for the FWW. [facility] reports that they bill their patients up front for the FWW, which is $125. She states that Medicare will then reimburse the patient. SOHAIL informed the patient of this. The patient prefers to not have to pay up front and chose to get the FWW at [facility]. SOHAIL contacted and faxed the FWW order to Ingrid at [facility]. Awaiting delivery of FWW.
--- NOTE | 2019-12-30 19:00 | NUR ---
PATIENT RESTING IN BED DURING CHANGE OF SHIFT REPORT FROM DAY SHIFT NURSE. REPORT UP INDEPENDENTLY IN ROOM WITH NO PROBLEMS. DENIES ANY NEEDS AT THIS TIME.
--- NOTE | 2019-12-31 01:00 | NUR ---
RESTING WITH EYES CLOSED/SLEEPING, DOES NOT AWAKEN WHEN DOOR TO ROOM OPENED, BREATHING NONLABORED AND EVEN. UP INDEPENDENTLY IN ROOM WITH NO PROBLEMS REPORTED.
[2019-12-31 04:35] VITALS: BP 158/75; PULSE 73; TEMP 97.5
--- NOTE | 2019-12-31 07:30 | NUR ---
PATIENT RESTING IN BED DURING CHANGE OF SHIFT REPORT GIVEN TO DAY SHIFT NURSE. PATIENT CONTINUES TO BE UP INDEPENDENTLY IN ROOM WITH NO PROBLEMS
[2019-12-31 07:50] VITALS: BP 129/72; PULSE 82; TEMP 99
--- NOTE | 2019-12-31 08:04 | NUR ---
Pt assessment complete. Pt sitting up in recliner just finished with breakfast, he is A/O x4. His breathing is even and unlabored on RA. Pt denies any pain. No SOB. Pt denies any N/V. Offered to assist patient in brushing his teeth pt declined. Has no further needs at this time. Call light within reach.
--- NOTE | 2019-12-31 10:54 | NUR ---
SOHAIL contacted Ingrid at [facility] to follow up about the FWW. Ingrid reports that they can have someone deliver the FWW to the patient's room later today. SOHAIL met with the patient to inform and presented and explained the IM form. The patient verbalized understanding, signed, and he was provided a copy. SW to continue to follow.
[2019-12-31 11:56] VITALS: BP 158/77; PULSE 82; TEMP 97.3
[2019-12-31 16:20] VITALS: BP 177/80; PULSE 95; TEMP 97.5
--- NOTE | 2019-12-31 17:55 | NUR ---
Pt vomitted three times today, denies feeling nauseous. No pain. Elevated BP, PRN Apresoline administered, pt threw up shortly after but no pill visualized. Pt refusing dinner saying he doesn't want to upset his stomach any further. at bedside will continue to monitor.
[2019-12-31 19:16] VITALS: BP 178/76; PULSE 88; TEMP 97.6
--- NOTE | 2019-12-31 19:24 | NUR ---
PATIENT RESTING IN BED DURING CHANGE OF SHIFT REPORT FROM DAY SHIFT NURSE. PATIENT UP INDEPENDENTLY IN ROOM. HAS VOMITED WITHOUT NAUSEA X3, DAY SHIFT NURSE ALERTED DR CALDERON OF VOMITING WITH PLANNING TO SEE PATIENT. PATIENT WANTING MED FOR SLEEP, DENIES NAUSEA, ABD TENDERNESS, STATED HAS BMs TODAY, REPORTS SOME CHILLING. SEE CHART FOR VS DONE AT THIS TIME. WILL GIVEN APRESOLINE AT 1999 AT THE EARLIEST. REPORTS NO APPETITE, DENIES EXPOSURE TO VISITORS THAT ARE ILL, DENIES PREVIOUS VOMITING AT HOME THAT HE CAN RECALL.
[2019-12-31 22:36] VITALS: BP 121/63; PULSE 92
--- NOTE | 2019-12-31 23:00 | NUR ---
PATIENT REPORTS FEELING BETTER. NO FURTHER EPISODE OF VOMITING OBSERVED OR REPORTED BY PATIENT. TOLERATING ORAL INTAKE OF SCHEDULED MEDS. SEE CHART FOR VS TAKEN AFTER APRESOLINE GIVEN. DENIES ANY NEEDS OR COMPLAINT. CONTINUES TO TOLERATE BEING UP INDEPENDENTLY IN ROOM.
[2020-01-01 00:11] VITALS: BP 133/61; PULSE 82
--- NOTE | 2020-01-01 00:53 | NUR ---
PATIENT RESTING WITH EYES CLOSED WITH NONLABORED/EVEN BREATHING. DOES NOT AWAKEN WHEN DOOR TO ROOM OPENED.
--- NOTE | 2020-01-01 01:45 | NUR ---
PATIENT UP TO BATHROOM, DENIES FURTHER VOMITING, DENIES ANY COMPLAINTS OR NEEDS AT THIS TIME.
[2020-01-01 04:37] VITALS: BP 141/64; PULSE 79; TEMP 97.1
--- NOTE | 2020-01-01 07:09 | NUR ---
PATIENT RESTING IN BED DURING CHANGE OF SHIFT REPORT GIVEN TO DAY SHIFT NURSE. PATIENT CONTINUES TO BE UP INDEPENDENTLY IN ROOM WITHOUT PROBLEMS.
[2020-01-01] MEDS ORDERED: NORVASC 10MG10 MG PO (08:45)
--- NOTE | 2020-01-01 09:26 | NUR ---
[facility] did not deliver the FWW yesterday. SOHAIL contacted Ingrid at [facility]. Ingrid reports that they will deliver the FWW to the patient's room this morning. SOHAIL updated the patient and RN. The patient is to discharge back home with his today, 12/31, with outpatient PT/OT/ST at [facility] on . SOHAIL faxed the patient's discharge orders to [facility] on . No additional needs at this time.
--- NOTE | 2020-01-01 12:23 | NUR ---
patient is discharging home, leaving with his daughter, I have reviewed all discharge orders/ instructions, instructed on attending all Follow up appointments as we have scheudled for him, instructed to take meds as prescribed, he is being escorted out via wheelchair by DION Floyd
== END 2020-01-01 12:25 | disposition home or self-care (01) | DRG 57 ==
PROVIDERS: ADMIT Internal Medicine
DX: I69.854 Hemiplegia and hemiparesis following other cerebrovascular disease affecting left non-dominant side (principal); I69.831 Monoplegia of upper limb following other cerebrovascular disease affecting right dominant side; I69.828 Other speech and language deficits following other cerebrovascular disease; J44.9 Chronic obstructive pulmonary disease, unspecified; I25.10 Atherosclerotic heart disease of native coronary artery without angina pectoris; N18.3 Chronic kidney disease, stage 3 (moderate); I65.21 Occlusion and stenosis of right carotid artery; I12.9 Hypertensive chronic kidney disease with stage 1 through stage 4 chronic kidney disease, or unspecified chronic kidney disease; I25.2 Old myocardial infarction; H91.92 Unspecified hearing loss, left ear; M19.90 Unspecified osteoarthritis, unspecified site; R91.8 Other nonspecific abnormal finding of lung field; R79.89 Other specified abnormal findings of blood chemistry; F17.210 Nicotine dependence, cigarettes, uncomplicated; Z79.82 Long term (current) use of aspirin; Z79.02 Long term (current) use of antithrombotics/antiplatelets
CPT/HCPCS: 99222-AI; 99232-AI; 99239; J1650

== ENCOUNTER 2020-04-02 10:30 | Outpatient (RCR) | payer MEDICARE, BC ==
[~2020-04-02 10:30] MED LIST changes: +NORVASC 10MG10 MG PO
== END 2020-04-05 | disposition home or self-care (01) ==
LOC: MKS.ESL.PT
DX: I63.9 Cerebral infarction, unspecified (principal)

== ENCOUNTER 2020-06-15 11:00 | Outpatient (RCR) | payer MEDICARE, BC | END 2020-07-06 | disposition home or self-care (01) | LOC: MKS.ESL.PT | DX: I63.9 Cerebral infarction, unspecified (principal) ==

== ENCOUNTER 2021-12-15 14:14 | Inpatient (IN) | payer MEDICARE, BC ==
[~2021-12-15] VITALS: Ht 175.3 cm; Wt 46.8 kg
[~2021-12-15 14:14] MED LIST changes: +CARDIZEM CD 12120 MG PO; +DULCOLAX S10 MG/SUPP RC; +IPRATROPIUM BROM3 M1 IH; +MELATONIN3 M1 PO; +MIRALAX PA17 GM/Dose PO; +MIRTAZAPINE7.5 MG PO; +MUCUS RELIEF400 M1 PO; +OMNICEF 300MG300 MG PO; +SENNA-S 50 MG-81 TAB PO; +TYLENOL 325MG325 MG PO
[2021-12-15 14:45] LABS: ARTERIAL BLD GAS O2 SATURATION 96.8 % (92-100); ARTERIAL BLD GAS TCO2 CT 20.3; ARTERIAL BLOOD GAS HCO3 19.4 meq/L (22-26); ARTERIAL BLOOD GAS PO2 85.1 mmHg (80-100); ARTERIAL BLOOD GAS pH 7.43 (7.35-7.45)
[2021-12-15 15:33] LABS: BASO # 0.1 K/mm3 (0.0-0.2); BASO % 0.7 % (0.0-2.0); EOS % 0.2 % (0.0-4.0); GRAN # 8.6 K/mm3 (1.4-6.5); LYMPH # 0.7 K/mm3 (1.2-3.4); MEAN CELL VOLUME 91 fl (80.0-100.0); MEAN CORPUSCULAR HGB CONC 31 g/dl (33.0-37.0); MEAN PLATELET VOLUME 9.3 fl (7.4-10.4); MONO # 0.8 K/mm3 (0.1-0.6); MONO % 7.6 % (1.7-9.3); PLATELET COUNT 444 K/mm3 (130-400); RED BLOOD COUNT 3.98 M/mm3 (4.20-5.60); REDCELL DISTRIBUTION WIDTH-CV 15.7 % (11.5-14.5)
[2021-12-15 15:42] LABS: HEMATOCRIT 36.1 % (42.0-52.0); HEMOGLOBIN 11.3 g/dl (13.5-18.0); MEAN CORPUSCULAR HEMOGLOBIN 28 pg (27-31)
[2021-12-15 15:50] LABS: BILIRUBIN,TOTAL 0.4 mg/dL (0.2-1.2); CALCIUM 9.3 mg/dL (8.4-10.2); CREATININE, serum 1.33 mg/dL (0.72-1.25); POTASSIUM 3.9 mmol/L (3.5-4.5); TOTAL PROTEIN 7.4 gm/dL (6.2-8.1)
[2021-12-15] MEDS ORDERED: MELATONIN1 MG PO (16:03)
[2021-12-15 17:48] VITALS: BP 117/58; PULSE 91; TEMP 98
[2021-12-15 20:16] VITALS: BP 125/69; PULSE 80; TEMP 97.6
--- NOTE | 2021-12-15 22:34 | NUR ---
RECEIVED REPORT FROM DAY SHIFT. PATIENT IS DROWSY, BUT AROUSABLE. PATIENT DENIES ANY PAIN AT THIS TIME. MEDICATIONS OFFERED, REFUSED ONE AND TOOK THE REST. PATIENT MOUTH CARE PROVIDED. BILATERAL UPPER LOBES CTA, BOWEL SOUNDS PRESENT. PATIENT IS RESTING IN BED WITH CALL LIGHT NEAR.
[2021-12-16] VITALS (7 sets, daily range): BP systolic 126–142; BP diastolic 43–88; PULSE 34–84; TEMP 97.5–97.9
[2021-12-16 08:49] LABS: CALCIUM 7.9 mg/dL (8.4-10.2); CREATININE, serum 1.17 mg/dL (0.72-1.25); POTASSIUM 3.9 mmol/L (3.5-4.5)
[2021-12-16 09:25] LABS: BASO % 0.1 % (0.0-2.0); GRAN # 6.8 K/mm3 (1.4-6.5); GRAN % 87.8 % (42.2-75.2); HEMATOCRIT 28.1 % (42.0-52.0); HEMOGLOBIN 8.5 g/dl (13.5-18.0); LYMPH # 0.6 K/mm3 (1.2-3.4); LYMPH % 7.4 % (20.0-51.0); MEAN CELL VOLUME 94 fl (80.0-100.0); MEAN CORPUSCULAR HEMOGLOBIN 28 pg (27-31); MEAN CORPUSCULAR HGB CONC 30 g/dl (33.0-37.0); MEAN PLATELET VOLUME 9.8 fl (7.4-10.4); MONO # 0.3 K/mm3 (0.1-0.6); MONO % 4.3 % (1.7-9.3); PLATELET COUNT 298 K/mm3 (130-400); REDCELL DISTRIBUTION WIDTH-CV 15.8 % (11.5-14.5)
--- NOTE | 2021-12-16 10:27 | NUR ---
plate take out worker met with patient to discuss discharge plan. Patient recently admitted to hospital on 12/02-12/10 and was discharged to [facility]. Patient reports that at [facility] he is independent and that the care staff assists with " a few" things. Reports that he utilizes a walker to ambulate and that he does not use oxygen at the group home. PCP is and he utilizes [email or web address] for perscriptions. Patient reports that he does have a DPOA-HC established and has a copy at home and that his PCP's office should have a copy. Patient's HARIKA Jose Ramos ([phone]) contacts me this morning concerned that the patient's told him that [facility] "let his room go" and that he had to go back home. I informed Jose that i will get in touch with [facility] and call Janelle to clasydy the POC. Phone call made to Beth at [facility]. Beth states that since the family elected to not privately pay to "hold" the patient's room that they did have to formally discharge him. Beth reports that even with the above, their goal is to bring the patient back to them skilled once he is ready. Phone call made to Janelle. She states that the patient call this morning an told her " the doctors say i'm fine and that i can come home". I informed Janelle that the doctors had not seen the patient yet and that we were not discharging him today. Janelle had an increase of anxiety due to this knowing the patient cannot come back to their house yet.Janelle is agreeable to placing the patient back at [facility] post dc. Discharge plan: [facility]
--- NOTE | 2021-12-16 11:50 | NUR ---
Social Work student contacted Rishi munroe locate patient's DPOA-HC. SW was faxed Living Will documentation. No DPOA-HC documentation was faxed. SOHAIL secured Living Will and placed it in the patient's chart.
--- NOTE | 2021-12-16 11:53 | NUR ---
Social Work student faxed a referral for SNF in [facility].
--- NOTE | 2021-12-16 20:57 | NUR ---
O2 decreased to 4L at this time, tolerating well.
--- NOTE | 2021-12-16 21:59 | NUR ---
PATIENT ALERT AND ORIENTED. PATIENT HERE FOR COPD EXACERBATION AND LUNG CA COMPLICATIONS. PATIENT HAS A PRODUCTIVE COUGH WITH SOME FINE CRACKLES IN RLL. PATIENT WAS INCONTINENT ON ARRIVAL, CLEANED, AND POSITIONED IN BED. PATIENT HAS SOME REDNESS ON COCCYX AREA, APPLIED BARRIER CREAM AND POSITIONED ON SIDE. WILL CONTINUE TO MONITOR.
[2021-12-17 03:48] VITALS: BP 131/69; PULSE 72; TEMP 97.9
[2021-12-17 07:00] LABS: BASO % 0.1 % (0.0-2.0); GRAN # 8.8 K/mm3 (1.4-6.5); GRAN % 84.4 % (42.2-75.2); LYMPH # 0.7 K/mm3 (1.2-3.4); LYMPH % 6.6 % (20.0-51.0); MEAN CELL VOLUME 93 fl (80.0-100.0); MEAN CORPUSCULAR HGB CONC 30 g/dl (33.0-37.0); MEAN PLATELET VOLUME 9.9 fl (7.4-10.4); MONO # 0.9 K/mm3 (0.1-0.6); MONO % 8.3 % (1.7-9.3); PLATELET COUNT 346 K/mm3 (130-400); RED BLOOD COUNT 2.54 M/mm3 (4.20-5.60); REDCELL DISTRIBUTION WIDTH-CV 15.8 % (11.5-14.5)
[2021-12-17 07:25] LABS: CALCIUM 7.8 mg/dL (8.4-10.2); CREATININE, serum 1.11 mg/dL (0.72-1.25); POTASSIUM 3.5 mmol/L (3.5-4.5)
[2021-12-17 07:32] LABS: HEMATOCRIT 23.7 % (42.0-52.0); HEMOGLOBIN 7.2 g/dl (13.5-18.0); MEAN CORPUSCULAR HEMOGLOBIN 28 pg (27-31)
[2021-12-17 08:00] VITALS: BP 138/57; PULSE 67; TEMP 97.5
[2021-12-17 12:16] VITALS: BP 138/64; PULSE 66; TEMP 97.4
[2021-12-17 15:47] LABS: PLEURAL FLUID RBC 0 /mm3 (0-0); PLEURAL FLUID WBC 269 /mm3
[2021-12-17 15:49] LABS: PLEURAL FLUID APPEARANCE CLEAR; PLEURAL FLUID COLOR YELLOW
[2021-12-17 16:00] VITALS: BP 132/59; PULSE 55; TEMP 97.6
--- NOTE | 2021-12-17 16:43 | NUR ---
Clinical updates faxed to Beth at [facility]. Per family request, medical records contacted and NARAYAN form faxed to unit. Contact made to surgical unit to have the patient's RN place blank form in the patients room.
--- NOTE | 2021-12-17 17:54 | NUR ---
PT REMAINS ON 4-5 L HIGH FLOW. PT HAD THORACENTISIS DONE ON LEFT SIDE TODAY AND 1250 CC REMOVED. PT TOLERATING MECHANICAL SOFT DIET AND HONEY THICKENED LIQUIDS, PLAN FOR EGD ON MONDAY. PULM TO SEE PT TOMORROW. IVF D/C. CONT ZOSYN AND IV STERIODS. PT TO DC BACK TO [facility] WHEN DISCHARGE CRITERIA MET.
[2021-12-17 19:36] VITALS: BP 139/55; PULSE 72; TEMP 98.1
--- NOTE | 2021-12-17 21:30 | NUR ---
REPORT RECEIVED FROM DAY SHIFT. ASSUMED CARE. PATIENT AXOX3. PATIENT DENIES ANY PAIN AT THIS TIME. LUNGS, UPPER BILAT INSPIRATORY WHEEZES. FINE CRACKLES AT LEFT BASE. ANGELES CARE GIVEN. PM MEDS GIVEN. PATIENT IS RESTING IN BED WITH CALL LIGHT NEAR.
[2021-12-17 23:27] VITALS: BP 145/67; PULSE 81; TEMP 97.8
[2021-12-18 03:37] VITALS: BP 136/66; PULSE 68; TEMP 97.4
[2021-12-18 07:50] LABS: BASO % 0.2 % (0.0-2.0); GRAN # 9.5 K/mm3 (1.4-6.5); GRAN % 84.7 % (42.2-75.2); HEMOGLOBIN 7.4 g/dl (13.5-18.0); LYMPH # 0.7 K/mm3 (1.2-3.4); LYMPH % 6.5 % (20.0-51.0); MEAN CELL VOLUME 90 fl (80.0-100.0); MEAN CORPUSCULAR HEMOGLOBIN 28 pg (27-31); MEAN CORPUSCULAR HGB CONC 31 g/dl (33.0-37.0); MEAN PLATELET VOLUME 9.3 fl (7.4-10.4); MONO # 0.9 K/mm3 (0.1-0.6); MONO % 7.8 % (1.7-9.3); PLATELET COUNT 350 K/mm3 (130-400); RED BLOOD COUNT 2.66 M/mm3 (4.20-5.60); REDCELL DISTRIBUTION WIDTH-CV 15.7 % (11.5-14.5)
[2021-12-18 07:51] VITALS: BP 148/52; PULSE 70; TEMP 97.4
[2021-12-18 08:04] LABS: CREATININE, serum 1.11 mg/dL (0.72-1.25); POTASSIUM 3.1 mmol/L (3.5-4.5)
[2021-12-18 11:34] LABS: PLEURAL FLUID RBC 2000 /mm3 (0-0); PLEURAL FLUID WBC 160 /mm3
[2021-12-18 11:35] LABS: PLEURAL FLUID APPEARANCE CLEAR; PLEURAL FLUID COLOR YELLOW
[2021-12-18 11:38] VITALS: BP 151/66; PULSE 73; TEMP 98
--- NOTE | 2021-12-18 13:54 | NUR ---
THORACENTESIS DONE ON RIGHT SIDE BY DR DAY. APPROX 800 CC OF CLEAR, YELLOW FLUID REMOVED. PT TOLERATED WELL. PLEURAL FLUID SENT TO LAB.
--- NOTE | 2021-12-18 15:19 | NUR ---
Care resumed from esvin. Patient resting in bed. Denies needs. Assessment completed.
[2021-12-18 15:46] VITALS: BP 133/58; PULSE 64; TEMP 97.8
--- NOTE | 2021-12-18 18:16 | NUR ---
Patient ate a small amount of dinner. Sitting up in bed, watching tv.
[2021-12-18 18:24] LABS: BODY FLUID PH (AMS) 8 (())
[2021-12-18 19:38] VITALS: BP 157/75; PULSE 67; TEMP 97.1
--- NOTE | 2021-12-18 20:04 | NUR ---
PT ASKING FOR HS MEDS. GIVEN AT THIS TIME, ONE TABLET AT A TIME WITH HONEY THICK LIQUIDS. PT REFUSES TO HAVE MEDS CRUSHED. SPEECH SLIGHTLY GARBLED. HAS LEFT PICC LINE, FLUSHES WELL. BRUISING TO BILATERAL ARMS. BANDAIDS TO BACK FROM THORACENTESIS. WEARING OXYGEN AT 4L/NC. WILL MONITOR FOR CHANGES.
[2021-12-19 00:18] VITALS: BP 162/82; PULSE 71; TEMP 97.4
[2021-12-19 03:38] VITALS: BP 150/48; PULSE 61; TEMP 98.4
--- NOTE | 2021-12-19 06:00 | NUR ---
PT HAS IV ANTIBIOTIC INFUSING. LABS DRAWN FROM LEFT PICC WITHOUT PROBLEM. HAS HAD EPISODES OF BRADYCARDIA INTO 40'S PER PURCHASE ORDER CHECKER. PT RESTING WELL. OXYGEN AT 4L/HI BRINDA NC.
[2021-12-19 07:17] LABS: BASO % 0.1 % (0.0-2.0); GRAN # 8.5 K/mm3 (1.4-6.5); GRAN % 81.9 % (42.2-75.2); LYMPH # 0.9 K/mm3 (1.2-3.4); LYMPH % 8.2 % (20.0-51.0); MEAN CELL VOLUME 89 fl (80.0-100.0); MEAN CORPUSCULAR HGB CONC 31 g/dl (33.0-37.0); MEAN PLATELET VOLUME 9.7 fl (7.4-10.4); MONO # 0.9 K/mm3 (0.1-0.6); MONO % 8.6 % (1.7-9.3); PLATELET COUNT 362 K/mm3 (130-400); RED BLOOD COUNT 2.66 M/mm3 (4.20-5.60); REDCELL DISTRIBUTION WIDTH-CV 15.5 % (11.5-14.5)
[2021-12-19 07:18] VITALS: BP 134/53; PULSE 75; TEMP 97.5
[2021-12-19 07:19] LABS: HEMATOCRIT 23.7 % (42.0-52.0); HEMOGLOBIN 7.4 g/dl (13.5-18.0); MEAN CORPUSCULAR HEMOGLOBIN 28 pg (27-31)
[2021-12-19 07:44] LABS: ALBUMIN 2.2 gm/dL (3.4-4.8); CALCIUM 8.2 mg/dL (8.4-10.2); CREATININE, serum 1.15 mg/dL (0.72-1.25); MAGNESIUM 1.7 mg/dL (1.6-2.6); PHOSPHOROUS 3.1 mg/dL (2.3-4.7); POTASSIUM 3.3 mmol/L (3.5-4.5)
--- NOTE | 2021-12-19 09:28 | NUR ---
PT ASSESSED. NO COMPLAINTS OF PAIN OR DYSPNEA. NO SIGNS OR SYMPTOMS OF DISTRESS. CALL LIGHT WITHIN REACH. PT ABLE TO TAKE MEDICATIONS AND SET UP FOR BREAKFAST. NO OTHER CONCERNS AT THIS TIME.
[2021-12-19 11:14] VITALS: BP 167/69; PULSE 61; TEMP 97.6
[2021-12-19 15:36] VITALS: BP 152/76; PULSE 69; TEMP 98.2
[2021-12-19 19:40] VITALS: BP 135/56; PULSE 68; TEMP 98
--- NOTE | 2021-12-19 21:00 | NUR ---
PT IN BED, IS ALERT AND ORIENTED X3. SPEECH GARBLED, DIFFICULT TO UNDERSTAND AT TIMES. TAKES HS MEDS ONE AT A TIME, SWALLOWS WELL, LIQUIDS HONEY THICK. HAS LT PICC, FLUSHES WELL. VOIDING PER URINAL, LIGHT YELLOW URINE. OXYGEN AT 3L/HI BRINDA NC. COUGH REMAINS COARSE. DISCUSSED PLAN FOR EGD TOMORROW, HE VERBALIZED UNDERSTANDING.
[2021-12-20] VITALS (8 sets, daily range): BP systolic 122–158; BP diastolic 50–72; PULSE 59–74; TEMP 97.5–98.4
--- NOTE | 2021-12-20 04:00 | NUR ---
PT HAS BEEN VOIDING PER URINAL, ACCIDENTALLY SPILLED IN HIS BED, NEW LINENS PROVIDED AFTER ANGELES CARES GIVEN. IS NPO FOR EGD TODAY AT 1200.
[2021-12-20 06:47] LABS: BASO % 0.1 % (0.0-2.0); GRAN # 10.9 K/mm3 (1.4-6.5); GRAN % 87.2 % (42.2-75.2); LYMPH # 0.6 K/mm3 (1.2-3.4); LYMPH % 4.8 % (20.0-51.0); MEAN CELL VOLUME 90 fl (80.0-100.0); MEAN CORPUSCULAR HGB CONC 31 g/dl (33.0-37.0); MEAN PLATELET VOLUME 9.7 fl (7.4-10.4); MONO # 0.9 K/mm3 (0.1-0.6); PLATELET COUNT 378 K/mm3 (130-400); RED BLOOD COUNT 3.15 M/mm3 (4.20-5.60); REDCELL DISTRIBUTION WIDTH-CV 15.5 % (11.5-14.5)
[2021-12-20 07:02] LABS: HEMATOCRIT 28.4 % (42.0-52.0); HEMOGLOBIN 8.8 g/dl (13.5-18.0); MEAN CORPUSCULAR HEMOGLOBIN 28 pg (27-31)
[2021-12-20 07:11] LABS: ALBUMIN 2.4 gm/dL (3.4-4.8); CALCIUM 8.5 mg/dL (8.4-10.2); CREATININE, serum 1.36 mg/dL (0.72-1.25); MAGNESIUM 1.5 mg/dL (1.6-2.6)
[2021-12-20 07:16] LABS: POTASSIUM 2.6 mmol/L (3.5-4.5)
--- NOTE | 2021-12-20 08:37 | NUR ---
Assessment completed, alert/oriented but forgetfull, denies pain this morning, vital signs stable / afebrile, heart RRR/ distal pulses are palapble, K and Mg low this morning and I have notified hospitalist and we are replacing, lungs are very diminished and patient is labored breathing even at rest, he has a moist cough but denies any sputum production, he is currently requiuring 3L. of o2, patient appears malnourished and is NPO for and EGD around 1200, consent is signed, patient verbalized understanding of plan of care, denies other needs at this time
--- NOTE | 2021-12-20 12:10 | NUR ---
patient in Endoscopy for EGD
--- NOTE | 2021-12-20 12:45 | NUR ---
Met with patient and at bedside. They agreed that DNR/DNI would be appropriate for the patient. I informed them that they would probably need to tell the doctor as well. I also started the conversation about how agressive they would want to be with Jaime's care moving forward and the asked if they could discuss things today. I told her I would be back tomorrow to chat again and informed the hospitalist team of the probable code status change.
--- NOTE | 2021-12-20 13:23 | NUR ---
Deliverer Outside attended clinical rounds with the team. Patient to have EGD today. Hospitalist also ordered palliative consult. SW contacted Beth at [facility] and faxed clinical updates.
--- NOTE | 2021-12-20 20:00 | NUR ---
Bedside shift report received, assumed care for police shift commander. Assessment complete. A&Ox3. Denies nausea/shortness of breath/pain. VS stable. O2@3L/HFNC. Tele report SR. PICC to left upper arm flushes well with good blood return. Plan of care discussed for this shift to include meds/O2/calling for questions/concerns. Verbalizes understanding/denies needs. Call light in reach. Will monitor.
[2021-12-21] VITALS (7 sets, daily range): BP systolic 109–159; BP diastolic 40–86; PULSE 68–73; TEMP 97.5–98.5
--- NOTE | 2021-12-21 02:21 | NUR ---
Resting eyes closed. NO s/s of pain noted.
[2021-12-21 06:42] LABS: BASO % 0.1 % (0.0-2.0); EOS # 0.1 K/mm3 (0.0-0.7); GRAN # 7.8 K/mm3 (1.4-6.5); GRAN % 78.6 % (42.2-75.2); LYMPH # 1.1 K/mm3 (1.2-3.4); LYMPH % 10.6 % (20.0-51.0); MEAN CELL VOLUME 87 fl (80.0-100.0); MEAN CORPUSCULAR HGB CONC 32 g/dl (33.0-37.0); MEAN PLATELET VOLUME 9.9 fl (7.4-10.4); MONO # 0.9 K/mm3 (0.1-0.6); MONO % 8.5 % (1.7-9.3); PLATELET COUNT 320 K/mm3 (130-400); RED BLOOD COUNT 2.89 M/mm3 (4.20-5.60); REDCELL DISTRIBUTION WIDTH-CV 15.5 % (11.5-14.5)
[2021-12-21 06:48] LABS: HEMATOCRIT 25.1 % (42.0-52.0); HEMOGLOBIN 7.9 g/dl (13.5-18.0); MEAN CORPUSCULAR HEMOGLOBIN 27 pg (27-31)
[2021-12-21 07:05] LABS: ALBUMIN 2.1 gm/dL (3.4-4.8); CALCIUM 7.7 mg/dL (8.4-10.2); CREATININE, serum 1.38 mg/dL (0.72-1.25); MAGNESIUM 2.3 mg/dL (1.6-2.6); POTASSIUM 3.3 mmol/L (3.5-4.5)
--- NOTE | 2021-12-21 11:18 | NUR ---
0725 Pt asleep in bed. Shift assessment completed. Markell upper bases clear, markell lower bases adventitious breath sounds noted. O2 sat 97%. O2 on 3L nasal cannula. Thoracentisis site CDI. AP 61. Irregular rhythm noted. BP 159/61. Notified nurse. Central line in L arm intact.
--- NOTE | 2021-12-21 15:20 | NUR ---
Met with SOHAIL and former son-in-law and continued friend Jose outside patient room before arrived. He asked what the treatment plan was and how things looked for the patient. He understood treatment options may be limited if patient refuses to eat and stated that he has been talking with Janelle about what everyone is saying here and she asked him to join her if need be to help explain things. Jose left and Janelle arrived. I met with her at bedside with Jaime awake and willing to join conversation. We discussed what is important to the patient and what kind of care he would want. He states he really wants to go home and hates the food here, specifically the mechanical soft/"ground up" texture. While talking with the patient and his , hospitalist team and SW rounded. Dr. Hudson expanded on how treatment options are limited if the patient refuses to eat and if he wanted to have a regular diet with no restrictions, he would need to look at comfort care/hospice with the understanding that eating a regular diet may lead to more complications and him not getting better. The team clarified what everything would look and like after they rounded SOHAIL Slater and I disussed further with Janelle about various options. Since home is such a priority for the patient, Janelle is thinking about taking him home with hospice services but wanted to talk with him and their children more. Finances are also a concern but not a leading factor at the moment. Janelle stated she would love for Jaime to eat and get better and stronger and come home but feels he is probably past the rehab stage. I told her I would check back with her at a later time to see if they had more questions or if they came to a decision.
--- NOTE | 2021-12-21 15:33 | NUR ---
Oil Well Perforator Operator and Palliative RN attended clinical rounds then followed up with patient and his , Janelle to discuss goals of care. Patient's feels that patient may not be a rehab candidate at this point and wishes patient could eat and get stronger. SOHAIL reviewed options for hospice including the hospice house, hospice at a correction facility, and hospice at home. SOHAIL and ANGELO Talley advised Janelle that the expectation for hospice at home is that family provides 24/7 care for patient. Janelle feels she could do this with family support but needs to talk with them first. Janelle would like to opportunity to review these things with patient and her children. SOHAIL then contacted Beth at [facility] to provide update.
--- NOTE | 2021-12-21 19:30 | NUR ---
Bedside shift report received, assumed care for professional nursing tutor. Assessment complete. A&Ox3. Denies nausea/shortness of breath at rest/pain. VS stable. Tele reports SR. O2@3L/HFNC. PICC to left upper arm flushes well with good blood return. Did not eat any dinner this evening. States he [facility] not [facility] and would rather not eat at all than eat that. Noted to have diminished lung sounds in all bello. Plan of care discussed for this shift to include meds/calling for questions/concerns. Verbalizes understanding/denies needs. Call light in reach. Will monitor.
--- NOTE | 2021-12-21 23:11 | NUR ---
Resting in bed eyes closed. NO s/s of pain or discomfort noted.
[2021-12-22] VITALS (7 sets, daily range): BP systolic 127–149; BP diastolic 46–62; PULSE 52–94; TEMP 97.9–98.5
[2021-12-22 06:31] LABS: MEAN CELL VOLUME 90 fl (80.0-100.0); MEAN CORPUSCULAR HGB CONC 31 g/dl (33.0-37.0); MEAN PLATELET VOLUME 10.2 fl (7.4-10.4); PLATELET COUNT 283 K/mm3 (130-400); RED BLOOD COUNT 2.76 M/mm3 (4.20-5.60); REDCELL DISTRIBUTION WIDTH-CV 15.6 % (11.5-14.5)
[2021-12-22 06:39] LABS: HEMATOCRIT 24.9 % (42.0-52.0); HEMOGLOBIN 7.7 g/dl (13.5-18.0); MEAN CORPUSCULAR HEMOGLOBIN 28 pg (27-31)
[2021-12-22 06:50] LABS: ALBUMIN 2.2 gm/dL (3.4-4.8); CALCIUM 8.1 mg/dL (8.4-10.2); CREATININE, serum 1.33 mg/dL (0.72-1.25); MAGNESIUM 2.2 mg/dL (1.6-2.6); PHOSPHOROUS 3.6 mg/dL (2.3-4.7); POTASSIUM 3.9 mmol/L (3.5-4.5)
[2021-12-22 07:49] LABS: BAND 11 % (0-10); EOSINOPHIL 1 % (0-4); LYMPHOCYTE 12 % (20.0-51.0); MYELOCYTE 1 % (0-0); NEUTROPHILS 69 % (42.0-75.2); OVALOCYTES 1+; PLATELET ESTIMATE NORMAL (NORMAL); SCHISTOCYTES 1+
--- NOTE | 2021-12-22 10:34 | NUR ---
0720 Patient asleep in bed. Shift assessment complete. Upper lobes CARLOS clear. Lower lobes CARLOS diminished. Nasal cannula on @3L. SpO2 97%. Central line in L arm intact. No redness/swelling/pain. Piperacillin @25mL/hr. SCDs on. Call light within reach. 1025 Spoke with patient about meal preferences. Mentioned dislike of mechanical soft diet. Stated "I like anything my cooks." Also mentioned prefers to have cheeseburger, fries, and chocolate shake for meals.
--- NOTE | 2021-12-22 11:16 | NUR ---
Primary nurse and SW told me that daughter Susi called stating she was DPOA and had never been updated. Discussed with patient and he stated she isn't DPOA and to not release information to her. Call made to , Janelle, and she stated that Susi is DPOA but that she and the patient aren't on good terms at the moment d/t a recent arguement. During the discussion with Janelle, she states that she feels she can care for the patient at home but is unable to tell me if they want hospice or home health care. I described the difference again but Janelle woudn't give an answer either way other than to express concern over finances. Then received call from hospitalist team that they rounded and talked with the daughter, Susi, and she is on board with hospice at home. Coordinating with SOHAIL Slater to make phone call to Susi together to discuss things and a discharge timeline.
--- NOTE | 2021-12-22 12:58 | NUR ---
Attempted to call daughter Susi with SOHAIL Slater but sent directly to [employer] so left my direct number. Received call back from Susi around 1150. We discussed patient's condition and what it would mean if the patient was discharged home. Susi thinks that hospice is the correct path to go for her dad and feels her mother could be the primary caregiver at this time. Susi said she is looking at moving the patient and her mother closer to her in [place]. We discussed a timeline for discharge and Susi was concerned that her mother wouldn't be ready very quickly but when informed that hospice would make arrangements for supplies like a hospital bed, that would be more feasible. Susi looking at hospice agencies in the area and will get back to me on their choice. Notified SOHAIL and hospitalist team of this as well.
--- NOTE | 2021-12-22 14:51 | NUR ---
Met with patient, his , and friend/xn-nnw-ik-law. Discussed hospice again and patient verbalized he just wants to be home. and friend asked questions about the various hospice agencies in town and stated that she would like to make the decision and not get her children involved. After our discussion she was given a list of hospice agencies that service [place] and she chose to move forward with [facility]. Nohemy SAUCEDA present as well and will initiate referral. Notified hospitalist team of the decision.
--- NOTE | 2021-12-22 16:13 | NUR ---
Header Boss and Palliative RN Gerri met with patient and his , Janelle. Gerri had previously spoke with patient's daughter, Susi about hospice agency options as patient wishes to return home on hospice and his family is supportive. Janelle advised she would like to choose the agency and wants to use [facility]. SOHAIL contacted Nguy[facility]n at [facility] and faxed referral. Discharge Plan: Home on Hospice
--- NOTE | 2021-12-22 19:13 | NUR ---
RECEIVED CHANGE OF SHIFT REPORT FROM DAY SHIFT RN.
--- NOTE | 2021-12-22 20:42 | NUR ---
REFUSED SCHEDULED STOOL SOFTENER BUT AGREED TO TAKE OTHER SCHEDULED MEDS AT THIS TIME. REFUSED TO BE REPOSITIONED ONTO SIDE. CONTINUES TO HAVE MOIST COUGH BUT UNABLE TO EXPECTORATE SPUTUM. DENIES ANY OTHER NEEDS AT THIS TIME. OXYGEN CONTINUES PER HIGH FLOW NASAL CANNULA
[2021-12-23 03:16] VITALS: BP 116/51; PULSE 91; TEMP 97.7
--- NOTE | 2021-12-23 07:09 | NUR ---
CHANGE OF SHIFT REPORT GIVEN TO DAY SHIFT RNJHONY.
[2021-12-23 07:25] VITALS: BP 108/50; PULSE 86; TEMP 97.8
--- NOTE | 2021-12-23 08:00 | NUR ---
PATIENT IS ORIENTED BUT DROWSY. HE IS A VERY THIN, MALNOURISHED MALE WITH EXTENSIVE HEALTH HX INCLUDING LUNG CA, COPD, ASP PNA, AND RESPIRATORY FAILURE. 02 @ 3L PER NC TO KEEP SATS AT 90%. NOTED DYSPNEA WITH EXERSION. HONEY THICK LIQUIDS. REFUSED BREAKFAST BUT DID TAKE HIS AM MEDS WITH SIPS AND TOLERATED WELL. NO C/O N/V AT THIS TIME. LEFT UPPER ARM PICC LINE TO INT. HOB AT 40 DEGREES. HEAD TO TOE ASSESSMENT COMPLETE. PATIENT AND FAMILY DISCUSSING HOSPICE DISCHARGE PLANS. DNR. NO FAMILY PRESENT AT THIS TIME. PATIENT RESTING IN BED, WARM BLANKET APPLIED, LIGHTS TURNED DOWN, AND CALL LIGHT IN REACH. BED ALARM ON.
--- NOTE | 2021-12-23 10:05 | NUR ---
SOHAIL Slater and I called daughter Inge #[phone] to discuss hospice and the discharge plan. She was very thankful for our explanation and agreed that things were appropriately handled.
--- NOTE | 2021-12-23 10:25 | NUR ---
PCT CALLED AND REPORTED PATIENT JUST VOMITED AND O2 SATS IN THE 70'S ON 2L PER NC. PATIENT WAS ON 3L PER NC THIS AM, NURSING DID NOT TITRATE O2 DOWN. HOB ELEVATED, 02 INCREASED TO 4L PER MASK, DUE TO MOUTH BREATHING, WITH CONTINUOUS PULSE OX NOW INPLACE AT 90%. HOSPITALIST TEAM AT BEDSIDE. PATIENT IS RESPONSIVE AND APPROPRIATE. DNR. FAMILY DISCUSSING HOSPICE CARE. AIVS NOW AT BEDSIDE TO CHANGE PICC DRESSING. WILL MONITOR.
[2021-12-23 11:03] VITALS: BP 96/43; PULSE 76; TEMP 98
--- NOTE | 2021-12-23 14:10 | NUR ---
PCT WAS ASSISTING THE PATIENT TO ROLL IN ORDER TO CHANGE HIS BREIF. PATIENT BECAME NAUSEATED AND VOMITED LARGE AMOUNTS OF THICK BROWN MUCUS. HOB ELEVATED. PATIENT PROVIDED ORAL SUCTION AND CLEANED UP. GAVE PRN IV ZOFRAN. PCT HAD MOST LINENS STRIPED ALREADY, BUT REPORTED TO NURSE THAT THE EMESIS SMELLED LIKE OLD BLOOD. PATIENT DID HAVE PREVIOUS EGD, SEE REPORT. HOSPITALIST NOTIFIED, NO NEW ORDERS AT THIS TIME. PATIENT REPOSITIONED UP IN BED WITH PILLOW SUPPER TO HEAD & NECK TO HELP DECREASE ASP RISK. PATIENT WAS SLEEPING AND DIDN'T KNOW HE HAD STARTED VOMITING. PATIENT APPEARS TO HAVE LITTLE GAUARDING REFLEX WITH HIS AIRWAY. RT ALSO NOTIFIED. 02 @ 5L PER NC TO KEEP SATS IN MID 90'S. CONTINUOUS PULSE OX INPLACE.
--- NOTE | 2021-12-23 15:13 | NUR ---
Hod Carrier received a phone call from patient's daughter, Inge wanting update on DC plan. SOHAIL and Gerri, Palliative RN discussed patient's decision for hospice as well as plan to have patient discharged home with services from [facility]. Inge in agreement. SOHAIL contacted patient's Janelle and advised we would update her as soon as [facility] is able to admit patient at home. SOHAIL spoke with Nguyễn at [facility] who advised Dr. Bowens's office will not follow for hospice until patient has an in person visit. SOHAIL collaborated with ANGELO Herrera at Dr. Bowens's office and explained that an in person appointment would be taxing for patient in his current condition. Sharon will speak with Dr. Bowens tomorrow morning to advise.
[2021-12-23 16:06] VITALS: BP 88/55; PULSE 144; TEMP 97.5
--- NOTE | 2021-12-23 16:25 | NUR ---
PALLIATIVE CARE ORDERS INITIATED. PATIENT IS PLANNING ON GOING HOME WITH HOSPICE TOMORROW.
--- NOTE | 2021-12-23 17:25 | NUR ---
PATIENT IS NOW EXHIBITING SOME MILD AGONAL BREATHING. PATIENT IS INCREASINGLY PALE AND CLAMY. SOA AT REST. 02 @ 5L PER OXY MASK WITH SATS IN MID TO LOW 90'S. VITALS PRIOR TO PALLIATIVE CARE NOTED HR IN THE 130-140'S. B/P IN THE 80'S SYSTOLIC. PATIENT STILL HAVING INTERMITTENT LOOSE INCONTINENT STOOLS. NO EMESIS SINCE THE AFTERNOON. PATIENT RESTING UP IN BED WITH HOB AT 40 DEGREES. SCOPE PATCH APPLIED PER PALLIATIVE CARE ORDERS.
--- NOTE | 2021-12-23 18:35 | NUR ---
DURING END OF SHIFT ROUNDS BEFORE SHIFT CHANGE PATIENT WAS UNRESPONSIVE AND PULSELESS. NO HEART SOUNDS ASSESSED. SECOND RN AT BEDSIDE TO CONFIRM EXPIRATION. NATURAL RESOURCES MANAGER NOTIFIED. HOSPITALIST DANUTA NOTIFIED. NURSING THEN WENT TO CALL WHEN SHE WAS BEING PUSHED IN A WC ONTO THE UNIT TO VISIT HER . AND OTHER FAMILY MEMBER GIVEN PATIENT STATUS UPDATE AND ARE AWARE THE PATIENT JUST A FEW MOMENTS AGO. WAS VERY UPSET AT HERSELF FOR NOT MAKING IT ON TIME. NURSING CONSOLED AND OFFERED CONDOLECES. FAMILY GIVEN TIME TO MORN IN PRIVACY.
--- NOTE | 2021-12-23 19:15 | NUR ---
AUTOMOBILE CARPETS MOLDER AT BEDSIDE DISCUSSING ARRANGMENTS WITH FAMILY. PASTORAL CARE HAS ALREADY BEEN CALLED PER FAMILY REQUEST. GIS TECHNICIAN TAKING OVER
--- NOTE | 2021-12-23 20:40 | NUR ---
REMOVED LEFT PICC LINE, 48CM MEASURED.
--- NOTE | 2021-12-23 20:50 | NUR ---
PT TRANSPORTED TO HOME.
== END 2021-12-23 20:50 | disposition expired | DRG 871 ==
LOC: COL.ER 14:14 → SURG 16:16
PROVIDERS: Internal Medicine; Internal Medicine Pulmonary Disease; Personal Emergency Response Attendant; Physician Assistant; ADMIT Internal Medicine
PROC: 02HV33Z Insertion of Infusion Device into Superior Vena Cava, Percutaneous Approach (ICD-10-PCS; principal; 2021-12-16)
PROC: 5A0945A Assistance with Respiratory Ventilation, 24-96 Consecutive Hours, High Flow/Velocity Cannula (ICD-10-PCS; 2021-12-16)
PROC: 0W993ZZ Drainage of Right Pleural Cavity, Percutaneous Approach (ICD-10-PCS; 2021-12-18)
PROC: 0DJ08ZZ Inspection of Upper Intestinal Tract, Via Natural or Artificial Opening Endoscopic (ICD-10-PCS; 2021-12-20)
DX: A41.9 Sepsis, unspecified organism (principal); J96.01 Acute respiratory failure with hypoxia; E43 Unspecified severe protein-calorie malnutrition; I50.31 Acute diastolic (congestive) heart failure; J69.0 Pneumonitis due to inhalation of food and vomit; I69.351 Hemiplegia and hemiparesis following cerebral infarction affecting right dominant side; E87.2 Acidosis; Z68.1 Body mass index [BMI] 19.9 or less, adult; N17.9 Acute kidney failure, unspecified; I13.0 Hypertensive heart and chronic kidney disease with heart failure and stage 1 through stage 4 chronic kidney disease, or unspecified chronic kidney disease; R65.20 Severe sepsis without septic shock; I48.91 Unspecified atrial fibrillation; M19.90 Unspecified osteoarthritis, unspecified site; I25.10 Atherosclerotic heart disease of native coronary artery without angina pectoris; J44.9 Chronic obstructive pulmonary disease, unspecified; G40.909 Epilepsy, unspecified, not intractable, without status epilepticus; E03.9 Hypothyroidism, unspecified; F17.210 Nicotine dependence, cigarettes, uncomplicated; D64.9 Anemia, unspecified; D75.839 Thrombocytosis, unspecified; K44.9 Diaphragmatic hernia without obstruction or gangrene; R13.12 Dysphagia, oropharyngeal phase; I45.10 Unspecified right bundle-branch block; E78.5 Hyperlipidemia, unspecified; I95.1 Orthostatic hypotension; N18.30 Chronic kidney disease, stage 3 unspecified; K21.00 Gastro-esophageal reflux disease with esophagitis, without bleeding; K29.70 Gastritis, unspecified, without bleeding; Z20.822 Contact with and (suspected) exposure to COVID-19; Z85.118 Personal history of other malignant neoplasm of bronchus and lung; Z79.82 Long term (current) use of aspirin; S42.001D Fracture of unspecified part of right clavicle, subsequent encounter for fracture with routine healing; Z79.02 Long term (current) use of antithrombotics/antiplatelets; Z51.5 Encounter for palliative care
CPT/HCPCS: 99223-AI; 99231-AI; 99232-AI; 99233-AI; 99238; A9284; C1751; C9113; J1644; J1940; J1956; J2405; J2543; J2704; J2920; J2930; J3475; J3480; J7120; J7512; Q9967